=== PATIENT | male | born 1980 | race Caucasian/White ===

== ENCOUNTER 2022-11-22 14:12 | Emergency (ER) | payer OTHER ==
[~2022-11-22] VITALS: Ht 180.3 cm; Wt 79.4 kg
[2022-11-22 14:41] VITALS: BP 146/98
[2022-11-22 17:27] VITALS: BP 130/77
--- NOTE | 2022-11-22 17:27 | NUR ---
Patient discharged with v/s stable. Written and verbal after care instructions given. Patient verbalized understanding. Ambulatory with steady gait. All questions addressed prior to discharge. Advised to follow up with PMD.
--- NOTE | 2022-11-22 17:43 | NUR ---
Patient discharged with v/s stable. Written and verbal after care instructions given and explained. Patient verbalized understanding. Ambulatory with steady gait. All questions addressed prior to discharge. Advised to follow up with PMD.
== END 2022-11-22 17:43 | disposition home or self-care (01) ==
LOC: MED 14:12
DX: G89.29 Other chronic pain (principal); M79.604 Pain in right leg
CPT/HCPCS: 93971; 99284